=== PATIENT | male | born 1995 | race African-American/Black ===

== ENCOUNTER 2017-01-02 16:42 | Emergency (ER) | payer SELFPAY ==
[~2017-01-02] VITALS: Ht 182.9 cm; Wt 73.0 kg
[2017-01-02 21:50] VITALS: BP 122/66
[2017-01-02] MEDS ORDERED: ACETAMINOPHEN 500MG TABLET PO ONE (22:45)
== END 2017-01-02 22:51 | disposition left against medical advice (07) ==
LOC: ER 22:10
DX: S05.11XA Contusion of eyeball and orbital tissues, right eye, initial encounter (principal); Y08.89XA Assault by other specified means, initial encounter; Y93.89 Activity, other specified; Y92.89 Other specified places as the place of occurrence of the external cause; Y99.8 Other external cause status; F12.10 Cannabis abuse, uncomplicated
CPT/HCPCS: 99281